=== PATIENT | male | born 1995 | race Hispanic/Latino ===

== ENCOUNTER 2017-09-04 14:32 | Outpatient (CLI) | payer BC ==
--- NOTE | 2017-09-04 18:03 | MRI ---
MRI LEFT SHOULDER WITHOUT CONTRAST: Date: 09/04/17 HISTORY: M75.42, impingement syndrome of the shoulder. COMPARISON: None. FINDINGS: Biceps Tendon: The extraarticular and intraarticular biceps tendon is normal. Labrum: No displaced tear. Rotator Cuff: Intact. No significant tendinosis. No interstitial tearing. Muscles: Muscle signal and bulk is normal. Bones: There is extensive susceptibility artifact along the superficial surface of the acromion. Advanced de generative disease acromioclavicular joint. Susceptibility appears to be along what would be expected to be an os acromiale. Possible old AC separation. Cartilage: Intact. IMPRESSION: 1. Normal rotator cuff. 2. Extensive susceptibility along the acromioclavicular joint with possible os acromiale, although e xtensive artifact limits this evaluation. Recommend correlation for prior history of AC joint injury as there are advanced degenerative changes of the AC joint. POS: MARY
== END 2017-09-04 14:33 | disposition home or self-care (01) ==
LOC: SCSMRI 14:32
PROVIDERS: ATTEND Orthopaedic Surgery
DX: M25.512 Pain in left shoulder (principal); M19.012 Primary osteoarthritis, left shoulder